=== PATIENT | male | born 1995 | race Two or more races ===

== ENCOUNTER 2021-09-02 22:00 | Emergency (ER) | payer SELFPAY ==
[~2021-09-02] VITALS: Ht 182.9 cm; Wt 83.0 kg
--- NOTE | 2021-09-02 22:52 | NUR ---
TO ER BED 10. BIBS C/O FACIAL NUMBNESS X TODAY. PT AAOX4. AMBULATORY WITH STEADY GAIT. DENIES ANY FEVERS OR CHILLS. NO EXTREMITY WEAKNESS NOTED. SOME FACIAL DROOP AND DELAYED EYE BLINKING NOTED. BREATHING IS EVEN AND NONLABORED. CONNECTED TO MONITOR. AWAITING MD LEOS
--- NOTE | 2021-09-02 22:56 | NUR ---
PT TAKEN FOR CT SCAN
[2021-09-02] MEDS ORDERED: predniSONE 50 MG TABLET PO ONE (23:00)
[2021-09-02] MEDS ORDERED: VALACYCLOVIR HCL 500 MG TABLET PO ONE (23:00)
[2021-09-02] MEDS ORDERED: VALACYCLOVIR HCL 500 MG TABLET ONE (23:03)
[2021-09-02] MEDS ORDERED: predniSONE 20 MG TABLET ONE (23:04)
[2021-09-03] MEDS ORDERED: PRED20TA PO (00:07)
[2021-09-03] MEDS ORDERED: VALA100026 PO (00:07)
[2021-09-03] MEDS ORDERED: DEXT15DR6 LEFTEYE (00:07)
[2021-09-03 00:13] VITALS: BP 129/90
--- NOTE | 2021-09-03 00:13 | NUR ---
Patient discharged to home in stable condition. Written and verbal after care instructions given. Patient verbalizes understanding of instruction.
== END 2021-09-03 00:13 | disposition home or self-care (01) ==
LOC: ER 22:17
DX: G51.0 Bell's palsy (principal); M19.90 Unspecified osteoarthritis, unspecified site; Z79.899 Other long term (current) drug therapy
CPT/HCPCS: 70450; 99284; J7512

== ENCOUNTER 2021-09-10 16:44 | Emergency (ER) | payer SELFPAY ==
[~2021-09-10] VITALS: Ht 175.3 cm; Wt 84.8 kg
[~2021-09-10 16:44] MED LIST: DEXT15DR6 LEFTEYE; PRED20TA PO; VALA100026 PO
--- NOTE | 2021-09-10 16:56 | NUR ---
TO ER BED 4, C/O L SIDED FACIAL AND BACK OF THE HEAD PAIN STARTED TODAY, AAOX3, BREATHING EVEN AND NON LABORED, CONNECTED TO MONITOR, AWAITING MD LEOS
[2021-09-10] MEDS ORDERED: predniSONE 20 MG TABLET PO ONE (18:00)
--- NOTE | 2021-09-10 18:21 | NUR ---
Patient discharged to home in stable condition. Written and verbal after care instructions given. Patient verbalizes understanding of instruction.
[2021-09-10 18:22] VITALS: BP 121/79
== END 2021-09-10 18:24 | disposition home or self-care (01) ==
LOC: ER 16:46
DX: G51.0 Bell's palsy (principal); M19.90 Unspecified osteoarthritis, unspecified site; Z79.899 Other long term (current) drug therapy